=== PATIENT | female | born 1945 | race Two or more races ===

== ENCOUNTER 2017-03-10 16:40 | Emergency (ER) | payer MEDICARE, MEDICAID ==
[~2017-03-10] VITALS: Ht 160 cm; Wt 81.6 kg
--- NOTE | 2017-03-10 16:59 | NUR ---
PT WAS EVALUATED BY DR WILLSON. PT IS IN ROOM #1B. DR WILLSON REINSERTED GT , PT TOLERATED TO PROCEDURE WITHOUT COMPLICATIONS. GASTROGRAFIN WAS ADMINISTERED BY RADIOLOGY TECHNITIAN VIA GT TO CONFIRM GT PLACING.
[2017-03-10] MEDS ORDERED: DIATR MEGLU/DIATRIZOATE SODIUM 120 ML BOTTLE ONE (17:07)
--- NOTE | 2017-03-10 17:14 | NUR ---
[facility] WAS CALLED TO TRANSFER PT TO HER ALF. ROSY IS 30 MINUTES.
--- NOTE | 2017-03-10 17:39 | NUR ---
PT WAS TRANSFERED TO [facility]IA [facility]. REPORT WAS GIVEN TO NURSING FACILITY AND TO AMBULANCE EMT.
[2017-03-10 17:44] VITALS: BP 139/67
== END 2017-03-10 17:44 | disposition home or self-care (01) ==
LOC: ER 16:44
DX: Z43.1 Encounter for attention to gastrostomy (principal)
CPT/HCPCS: 74000; A4663; Q9963